=== PATIENT | female | born 1980 | race Caucasian/White ===

== ENCOUNTER 2017-03-01 11:27 | Emergency (ER) | payer OTHER ==
[~2017-03-01] VITALS: Ht 152.4 cm; Wt 71.0 kg
[~2017-03-01 11:27] MED LIST: BENADRYL25 MG PO; Colace PO; Feosol PO; MEDROL DOSEPAK4 MG PO; Motrin PO; PEPCID20 MG PO; PREFERA-OB P1 TABLET PO; Percocet 5/325,Endoc PO; SUBOXONE 2 MG-1 EACH SL
[2017-03-01] MEDS ORDERED: ADDERALL20 MG PO (12:23)
[2017-03-01] MEDS ORDERED: ADDERALL XR 3030 MG PO (12:23)
[2017-03-01] MEDS ORDERED: METHADONE H5 MG/5 ML PO (12:24)
[2017-03-01] MEDS ORDERED: ULTRAM50 MG PO (13:22)
[2017-03-01] MEDS ORDERED: NAPROSYN500 MG PO (13:26)
[2017-03-01 14:12] VITALS: BP 126/84
== END 2017-03-01 14:13 | disposition home or self-care (01) ==
LOC: EME 11:27
PROC: 2W3FX1Z Immobilization of Left Hand using Splint (ICD-10-PCS; principal; 2017-03-01)
DX: S60.222A Contusion of left hand, initial encounter (principal); W20.8XXA Other cause of strike by thrown, projected or falling object, initial encounter; F17.200 Nicotine dependence, unspecified, uncomplicated
CPT/HCPCS: 73130; 99281; 99284

== ENCOUNTER 2017-04-23 02:21 | Day surgery (SDC) | payer OTHER ==
[~2017-04-23] VITALS: Ht 157.5 cm; Wt 72.8 kg
[~2017-04-23 02:21] MED LIST changes: +ADDERALL XR 3030 MG PO; +ADDERALL20 MG PO; +METHADONE H5 MG/5 ML PO; +NAPROSYN500 MG PO; +ULTRAM50 MG PO
[2017-04-23 03:05] LABS: HEMATOCRIT 37.3 % (36.0-46.0); MCH 30.7 PG (29.0-34.0); MCHC 34.9 G/DL (30.0-36.0); MCV 88.2 FL (83-99); MEAN PLAT.VOLUME 9.7 uM^3 (9.5-12.4); PLATELET COUNT 277 K/uL (156-360); RBC DIS.WIDTH-CV 12.5 % (11.8-14.6); RBC DIS.WIDTH-SD 40.7 % (39-53); RED BLOOD COUNT 4.23 M/uL (3.80-5.20); WHITE BLOOD COUNT 13.4 K/uL (4.1-10.2)
[2017-04-23] MEDS ORDERED: DOXYCYCLINE HY100 M3 PO (06:46)
[2017-04-23] MEDS ORDERED: MOTRIN800 MG PO (06:46)
[2017-04-23 07:49] VITALS: BP 93/54
[2017-04-23 11:40] VITALS: BP 94/54
== END 2017-04-23 13:35 | disposition home or self-care (01) ==
LOC: EME 02:21 → 2EAST 06:08 → EME 06:08 → SDC 06:08 → 2SOUTH 07:22 → 2EAST 07:36
PROC: 10D17ZZ Extraction of Products of Conception, Retained, Via Natural or Artificial Opening (ICD-10-PCS; principal; 2017-04-23)
DX: O03.1 Delayed or excessive hemorrhage following incomplete spontaneous abortion (principal); Z3A.08 8 weeks gestation of pregnancy; F90.1 Attention-deficit hyperactivity disorder, predominantly hyperactive type; F17.210 Nicotine dependence, cigarettes, uncomplicated
CPT/HCPCS: 76801; 81003; 84702; 85027; 86900; 86901; 88305; 99281; 99285; G0378; J0330; J1100; J1885; J2175; J2270; J2405; J3010; J7030